=== PATIENT | female | born 1940 | race Two or more races ===

== ENCOUNTER 2020-02-01 08:00 | Inpatient (IN) | payer OTHER ==
[~2020-02-01] VITALS: Ht 162.6 cm; Wt 68.0 kg
[2020-02-01] MEDS ORDERED: LEVO-T25 MCG PO (12:33)
[2020-02-01] MEDS ORDERED: SIMVASTATIN20 MG PO (12:34)
[2020-02-11] MEDS ORDERED: OXYC1TAB9 PO (10:32)
[2020-02-11] MEDS ORDERED: INTESTINEX680 M1 PO (10:33)
[2020-02-11] MEDS ORDERED: PANTOPRAZOLE SO40 MG PO (10:33)
== END 2020-02-11 13:23 | disposition home or self-care (01) | DRG 331 ==
LOC: ADM 08:00 → EDSTATUS 09:30 → ADM 09:30 → SURH 02-07 07:00 → O/R 02-07 07:12 → SURH 02-07 09:30
PROVIDERS: ADMIT Surgery
PROC: 07BB4ZX Excision of Mesenteric Lymphatic, Percutaneous Endoscopic Approach, Diagnostic (ICD-10-PCS; 2020-02-07)
PROC: 0DTF4ZZ Resection of Right Large Intestine, Percutaneous Endoscopic Approach (ICD-10-PCS; principal; 2020-02-07 07:00)
DX: D12.0 Benign neoplasm of cecum (principal); K63.89 Other specified diseases of intestine; R59.0 Localized enlarged lymph nodes